=== PATIENT | female | born 1985 | race Caucasian/White ===

== ENCOUNTER 2024-11-15 11:58 | Emergency (ER) | payer OTHER, SELFPAY ==
--- NOTE | ~2024-11-15 | XR_ITS ---
EXAM/ PROCEDURE: XR ankle LT min 3V, XR foot LT min 3V - 11/15/2024 12:30 CDT HISTORY: 39 years old Female with fall, L ankle pain COMPARISON: None available TECHNIQUE: Four view(s) each FINDINGS/ IMPRESSION: Transverse nondisplaced fracture of the base of the fifth metatarsal at the metaphyseal diaphyseal ju nction, compatible with Mustafa fracture. There are no other fractures or dislocations.Joint spaces are within normal limits. Reviewed, dictated and finalized at location A.
[2024-11-15 12:02] VITALS: BP 168/110; PULSE 100; RESP 20; TEMP 36.4; O2SAT 98
--- NOTE | 2024-11-15 13:07 | ED.LOWEXIN ---
HPI - Extremity Injury (Lower) General Chief Complaint: Extremity Injury, Lower Stated Complaint: L foot pain Time Seen by Provider: 11/15/24 13:00 Source: patient Limitations: no limitations History of Present Illness HPI Narrative: This is a 39 year old female that presents to the ER for left foot/ankle pain after an injury today. Unable to put weight on the foot without pain. She tool Tylenol with little relief. No other injuries or other area of pain. Related Data Allergies Allergy/AdvReac Type Severity Reaction Status Date / Time acetaminophen (From NyQuil) Allergy Swelling Verified 11/15/24 12:06 of Lip/Tongue/Throat dextromethorphan (From Allergy Swelling Verified 11/15/24 12:06 NyQuil) of Lip/Tongue/Throat doxylamine (From NyQuil) Allergy Swelling Verified 11/15/24 12:06 of Lip/Tongue/Throat ibuprofen Allergy Swelling Verified 11/15/24 12:06 of Lip/Tongue/Throat pseudoephedrine (From Allergy Swelling Verified 11/15/24 12:06 DayQuil Sinus Pressure/Pain) of Lip/Tongue/Throat Review of Systems Review of Systems: All systems reviewed & are unremarkable except as noted in HPI and below PMFSH Past Medical History Medical History (Updated 11/15/24 @ 13:35 by Sanam Vargas PA-C) No active medical problems Exam Narrative: GENERAL: Well-appearing, well-nourished, and in no acute distress. HEAD: Normocephalic, atraumatic. EYES: EOMI. EXTREMITIES: Normal range of motion. No obvious deformity. Normal DP pulse. Tender to palpation over the left fifth metatarsal SKIN: Warm, dry, no rash. NEURO: No focal deficits. Alert and oriented x3. PSYCH: Normal mood and affect Course Course Emergency Course: Patient updated on her workup and agrees with plan of care Vital Signs Vital signs: Vital Signs Temperature 97.6 F 11/15/24 12:02 Pulse Rate 100 11/15/24 12:02 Respiratory Rate 20 11/15/24 12:02 Blood Pressure 168/110 H 11/15/24 12:02 Pulse Oximetry 98 11/15/24 12:02 Oxygen Delivery Room Air 11/15/24 12:02 Temperature 97.6 F 11/15/24 12:02 Pulse Rate 100 11/15/24 12:02 Respiratory Rate 20 11/15/24 12:02 Blood Pressure 168/110 H 11/15/24 12:02 Pulse Oximetry 98 11/15/24 12:02 Oxygen Delivery Room Air 11/15/24 12:02 Procedures Orthopedic Splinting/Casting Injury #1: Splinting/Casting Date: 11/15/24 Splinting/Casting Time: 13:34 Side: left Lower Extremity Injury Location: foot Splint: customized in ED OCL: short leg Pre-Procedure Neuro Vascular Exam: normal Post-Procedure Neuro Vascular Exam: normal Other Orthopedic Equipment: crutches MDM - Extremity Injury (Lower) MDM Narrative Medical decision making narrative: Patient presents the emergency department after an injury today with left foot pain. Patient is neurovascularly intact. Left foot x-ray shows a transverse nondisplaced fracture at the base of the 5th metatarsal. Patient placed in short-leg posterior, given crutches. Will be given follow-up with Orthopedics. She declines any further pain medication at this time. She was given warnings to return to the ER Differential Diagnosis Differential diagnosis: Likely ankle fracture and other (Foot fracture) Imaging Data Radiologist's impression: EXAM/ PROCEDURE: XR ankle LT min 3V, XR foot LT min 3V - 11/15/2024 12:30 CDT HISTORY: 39 years old Female with fall, L ankle pain COMPARISON: None available TECHNIQUE: Four view(s) each FINDINGS/ IMPRESSION: Transverse nondisplaced fracture of the base of the fifth metatarsal at the metaphyseal diaphyseal junction, compatible with Mustafa fracture. Critical Care Time Critical Care Time Critical Care Time: No Discharge Plan Discharge Clinical Impression: Closed fracture of fifth metatarsal bone Qualifiers: Encounter type: initial encounter Fracture alignment: nondisplaced Laterality: left Qualified Code(s): S92.355A - Nondisplaced fracture of fifth metatarsal bone, left foot, initial encounter for closed fracture Patient Disposition: Home Condition: Stable Instructions: Foot Fracture in Adults (ED) Additional Instructions: Return to the ER if you experience fever, redness and swelling of your extremity, numbness or any other symptoms that are concerning to you Wear splint and use crutches. No weight on the affected leg. Ice and elevate extremity. Pain medication as needed and directed. Follow up with orthopedics for further care. Patient Language: Upper Sorbian Follow-up/Referrals: PHYSICIAN NOT ON STAFF,NONSTAFF [Non-Staff] - Zackary Lomeli MD [Physician] -
[2024-11-15] MEDS: traMADol HCL (*CRX) 50 MG TABLET PO (13:28)
--- OUTSIDE RECORDS SUMMARY | 2024-11-15 13:28 | XMS_ITS | Clinical Summary ---
Author Organization [facility] Address [address] [place] [id number] Care Team Providers Care Curriculum Supervisor Name Role Phone Michelle Villanueva NP Primary Care Provider [phone] Allergies Active Allergy Reactions Criticality Noted Date Comments Dextromethorphan Hives Medium 05/19/2020 Hives Rdurbovze-Mwm-Wv-Acetamin ophen Other (See comments) Low 07/09/2018 Doxylamine Hives Medium 05/19/2020 Hives Ethanol (Ethyl Alcohol) Hives Medium 05/19/2020 Hives Ibuprofen Rash,Swelling,Other (See comments) High 07/09/2018 Other reaction(s): swelling of lips and rash swelling of lips and rash Nsaids (Non-Steroidal Anti-Inflammatory Drug) Anaphylaxis High 08/12/2017 Nyquil Swollen tongue High 07/09/2018 Nvnjdtqzj-Se-Gp-Acetamino phen Anaphylaxis High 08/12/2017 Pseudoephedrine Hives Medium 05/19/2020 Hives Medications ipratropium-albut Keron (DUO-NEB) 0.5-2.5 mg/3 mL nebulizer solutionIndicatio ns:Chronic Obstructive Pulmonary Disease with Bronchospasms Take 3 mL by nebulization 4 (four) times a day as needed for wheezing or shortness of breath 90 mL 04/12/20 23 Active Additional Information Patient not taking.Reported on 07/20/2024 escitalopram (LEXAPRO) 20 mg tabletIndications :Anxiety,Moderate episode of recurrent major depressive disorder (HCC) Take 1 tablet (20 mg total) by mouth daily 30 tablet 3 06/30/19 24 Active Additional Information Patient not taking.Reported on 07/20/2024 ergocalciferol (VITAMIN D) 50,000 unit capsuleIndication s:Vitamin D deficiency Take 1 capsule (50,000 Units total) by mouth once a week 12 capsule 3 12/28/19 24 025 Active albuterol HFA (PROVENTIL HFA,VENTOLIN HFA,PROAIR HFA) 90 mcg/actuation inhalerIndication s:Moderate persistent asthma without complication Inhale 2 puffs every 4 (four) hours as needed for wheezing or shortness of breath 9 g 5 07/21/19 25 Active amLODIPine (NORVASC) 10 mg tabletIndications :Hypertension, essential Take 1 tablet (10 mg total) by mouth daily 90 tablet 1 07/21/19 25 Active fluticasone propion-salmetero L (ADVAIR DISKUS) 250-50 mcg/dose diskus inhalerIndication s:Moderate persistent asthma without complication Inhale 1 puff 2 (two) times a day Rinse mouth with water after use. Do not swallow. 60 each 5 07/21/19 25 Active mometasone (NASONEX) 50 mcg/actuation nasal sprayIndications: Seasonal allergic rhinitis, unspecified trigger Administer 2 sprays into each nostril daily 17 g 5 07/21/19 25 Active Active Problems Problem Noted Date Diagnosed Date Lactose intolerance 12/29/2023 Assessment & Plan (12/29/2023 5:25 AM CDT): New diagnosis, per patient report Encouraged to avoid products containing dairy or can use lactose prior to meals containing dairy Vitamin D deficiency 08/29/2023 Assessment & Plan (07/20/2024 9:49 AM CDT): Uncontrolled, was taking vitamin-D 19665 IU weekly x3 months, now taking cfmh-[id number]-cjpnjbq supplement, states she did not not know she had refills Advised to restart vitamin-D 97931 IU weekly Assessment & Plan (12/28/2023 7:47 AM CDT): Chronicity and stability unknown, not on supplement Started on vitamin D 50,000 international units weekly with a meal Will monitor for stability Assessment & Plan (08/29/2023 9:36 AM CDT): Chronicity and stability unknown Advised to take vitamin D3 2000 IU 2 daily with a meal for 1 month then decrease to 2000 IU 1 daily with a meal Seasonal allergic rhinitis 08/29/2023 Assessment & Plan (07/20/2024 9:47 AM CDT): Uncontrolled Started on Nasonex as directed Assessment & Plan (12/28/2023 7:47 AM CDT): Chronic, stable, controlled with OTC medication Continued on Benadryl as directed as needed Assessment & Plan (08/29/2023 9:35 AM CDT): Chronicity unknown, with worsening symptoms Advised can take ekkc-uxv-sickkoq Zyrtec and use Flonase, both daily, for allergy symptoms, monitor for worsening Encounter for vitamin deficiency screening 06/30 Screening, lipid 06/30/2023 Need for vaccination 10/30/2022 Assessment & Plan (10/30/2022 8:17 AM CDT): Given Prevnar 20 today. Moderate persistent asthma without complication 10/02/2022 Assessment & Plan (07/20/2024 9:47 AM CDT): Controlled Continued on Advair BID, rinsing mouth after use, and albuterol MDI as directed PRN Assessment & Plan (12/28/2023 7:55 AM CDT): Chronic, improved/controlled on medication Continued on Advair BID, rinsing mouth after use, and albuterol MDI as directed PRN Assessment & Plan (08/29/2023 9:34 AM CDT): Chronic, improved/controlled on medication Continued on Advair BID, rinsing mouth after use, and albuterol MDI as directed PRN Assessment & Plan (06/30/2023 12:47 PM [employer]): Chronic, improved on medication Continued on Advair BID, rinsing mouth after use, and albuterol MDI as directed PRN Assessment & Plan (06/22/2023 9:20 AM [employer]): Chronic, uncontrolled, with acute exacerbation Prescribed prednisone burst Started on Breo Recommended follow-up in 2 weeks, sooner if needed, advised ER for new or worsening symptoms Assessment & Plan (01/06/2023 6:11 PM CDT): Uncontrolled, with daily albuterol MDI use, last two IBS/LABA not on formulary or too expensive, prescribed Symbicort & Advair Started on Breo 1 inhalation once daily, rinsing mouth after use Assessment & Plan (10/30/2022 8:16 AM CDT): Chronic, controlled on medication, however Symbicort no longer on formulary- started on Advair [id number]. Assessment & Plan (10/02/2022 4:17 PM CDT): Chronic, stable, controlled with medication-continued on Symbicort twice daily and albuterol as directed as needed, refills sent to pharmacy per patient request. Class 3 severe obesity due t o excess calories with serious comorbidity and body mass index (BMI) of 40.0 to 44.9 in adult 10/02/2022 Assessment & Plan (07/20/2024 9:48 AM CDT): Worsened Encouraged to: Make healthy food choices, limiting intake of concentrated sweets, cholesterol, and saturated fat Monitor daily caloric intake and portion sizes Exercise most days of the week for a goal of at least 150 minutes of exercise per week Assessment & Plan (12/28/2023 7:50 AM CDT): Chronic, worsened Encouraged to: Make healthy food choices, limiting intake of concentrated sweets, cholesterol, and saturated fat Monitor daily caloric intake and portion sizes Exercise most days of the week for a goal of at least 150 minutes of exercise per week Assessment & Plan (08/29/2023 9:34 AM CDT): Chronic, stable Encouraged to: Make healthy food choices, limiting intake of concentrated sweets, cholesterol, and saturated fat Monitor daily caloric intake and portion sizes Exercise most days of the week for a goal of at least 150 minutes of exercise per week Assessment & Plan (06/30/2023 12:48 PM [employer]): Chronic, stable Encouraged to: Make healthy food choices, limiting intake of concentrated sweets, cholesterol, and saturated fat Monitor daily caloric intake and portion sizes Exercise most days of the week for a goal of at least 150 minutes of exercise per week Ordered CMP, HgbA1c, and TSH level Assessment & Plan (06/22/2023 9:22 AM [employer]): Chronic, worsened Encouraged to: Make healthy food choices, limiting intake of concentrated sweets, cholesterol, and saturated fat Monitor daily caloric intake and portion sizes Exercise most days of the week for a goal of at least 150 minutes of exercise per week Assessment & Plan (10/02/2022 4:20 PM CDT): Chronic, worsening, without series comorbidity-encouraged to monitor daily caloric intake and portion sizes and to exercise most days of the week, for goal of at least 150 minutes of exercise per week. Physical exam, annual 09/16/2022 Assessment & Plan (12/29/2023 5:25 AM CDT): Reviewed past and current medical history, surgical history, social history, family history, current medications, and allergies. The chart was updated to identify any changes in these areas. A ROS and PE were performed. Medication and labs were ordered. Discussed well woman exam/cervical cancer screening, and monthly breast self-exams Patient will follow-up in months for further evaluation and management or sooner if needed. Assessment & Plan (10/02/2022 4:17 PM CDT): Reviewed past and current medical history, surgical history, social history, family history, current medications, and allergies. A ROS and PE were performed. Medication was refilled and adjusted. Patient will follow-up in 4 weeks for further evaluation and management or sooner if needed. Hypertension, essential 08/13/2022 Assessment & Plan (07/20/2024 9:47 AM CDT): Controlled Continued on amlodipine Assessment & Plan (12/29/2023 5:28 AM CDT): Chronic, slightly worsened, with borderline diastolic (90), on medication Continued on amlodipine, encouraged low-sodium diet and weight loss Assessment & Plan (08/29/2023 9:34 AM CDT): Chronic, stable, controlled with medication Continued on amlodipine Assessment & Plan (06/30/2023 12:48 PM [employer]): Chronic, uncontrolled Advised to: Get 7-9 hours of sleep a night Make healthy food choices, limiting concentrated sweets, fats, and cholesterol in diet Monitor daily caloric intake and portion sizes Exercise most days of the week for goal of at least 150 minutes of exercise per week Ordered CMP Assessment & Plan (06/22/2023 9:22 AM [employer]): Chronic, controlled with medication Continued on amlodipine Assessment & Plan (01/06/2023 6:11 PM CDT): Controlled on medication Continued on amlodipine, refills sent to pharmacy per request Assessment & Plan (10/30/2022 8:16 AM CDT): Chronic, improved/controlled on amlodipine-continued on amlodipine 10 mg once daily. Assessment & Plan (10/02/2022 4:18 PM CDT): Chronic, uncontrolled/unchanged compared to prior reading, started on amlodipine 5 mg at initial/last visit-increased dose of amlodipine from 5 mg to 10 mg daily. Assessment & Plan (08/15/2022 11:33 AM CDT): Chronic, uncontrolled-started on amlodipine 5 mg daily. Recommended follow-up in 4 weeks for annual and blood pressure check. Anxiety 05/28/2021 Assessment & Plan (07/20/2024 9:46 AM CDT): Controlled, stopped medication Reviewed ADRIANNA-7=3 Will monitor for stability Assessment & Plan (12/29/2023 5:27 AM CDT): Chronic, slightly worsened according to ADRIANNA-7 or on medication Reviewed ADRIANNA-7= 12, previously 10 Continued on Lexapro 20 mg daily and hydroxyzine as directed as needed Assessment & Plan (08/29/2023 9:32 AM CDT): Chronic, improved on medication Reviewed ADRIANNA-7=10 Continued on Lexapro 20 mg daily and hydroxyzine as directed as needed Assessment & Plan (06/30/2023 12:45 PM [employer]): Chronic, improved on medication and with better control of asthma symptoms Continued on Lexapro 20 mg daily, prescription sent to pharmacy per request Assessment & Plan (06/22/2023 9:21 AM [employer]): Chronic, uncontrolled Continued on Lexapro, advised can increased from 10 mg to 20 mg daily Assessment & Plan (01/06/2023 6:31 PM CDT): Uncontrolled, not on medication, historically took Lexapro and saw psychiatry and was getting counseling Started on Lexapro 10 mg daily and hydroxyzine 10 mg 1-2 tabs BID PRN Assessment & Plan (10/02/2022 4:18 PM CDT): Chronic, uncontrolled, not on medication-declined refills on Lexapro. Encouraged follow-up with psychiatrist and therapist as recommended. Depression 05/28/2021 Assessment & Plan (07/20/2024 9:46 AM CDT): Controlled, stopped medication Reviewed PHQ-9=0 Will monitor for stability Advise if suicidal ideation or thoughts of harming self or others, to go to ER and/or call [phone] for assistance, agreed to contract for safety Assessment & Plan (12/29/2023 5:26 AM CDT): Chronic, improved on medication Reviewed PHQ-9= 9, previously 11 Continued on Lexapro 20 mg daily Advised if suicidal ideation or thoughts of harming self or others, to go to ER and/or call [phone] for assistance, agreed to contract for safety Assessment & Plan (08/29/2023 9:33 AM CDT): Chronic, improved on medication Reviewed PHQ-9=11 Continued on Lexapro 20 mg daily Advised if suicidal ideation or thoughts of harming self or others, to go to ER and/or call [phone] for assistance, agreed to contract for safety Assessment & Plan (06/30/2023 12:46 PM [employer]): Chronic, improved on medication and with better control of asthma symptoms Continued on Lexapro 20 mg daily, prescription sent to pharmacy per request Advised if suicidal ideation or thoughts of harming self or others, to go to ER and/or call [phone] for assistance, agreed to contract for safety Assessment & Plan (06/22/2023 9:21 AM [employer]): Chronic, uncontrolled Continued on Lexapro, advised can increased from 10 mg to 20 mg daily Instructed if suicidal ideation or thoughts of harming self or others, to go to ER and/or call [phone] for assistance, agreed to contract for safety Assessment & Plan (10/02/2022 4:18 PM CDT): Chronic, uncontrolled, not on medication-declined refills on Lexapro. Encouraged follow-up with psychiatrist and therapist as recommended. Resolved Problems Problem Noted Date Diagnosed Date Resolved Date Severe obesity 07/20/2024 07/20/2024 Body mass index 40.0-44.9, adult (CMS/[facility]) 07/20/2024 07/20/2024 Elevated hemoglobin 06/30/2023 12/28/19 24 Assessment & Plan (06/30/2023 12:49 PM [employer]): New diagnosis Ordered CBC to monitor for stability COVID-19 04/12/2023 06/29/2023 Leukocytes in urine 08/15/2022 09/17/19 23 Assessment & Plan (08/15/2022 11:34 AM CDT): Recent diagnosis, on antibiotic-stopped Cipro due to new diagnosis of strep pharyngitis, started on Augmentin. Instructed to increase fluid intake. Will review culture results when available. Encounter to establish care 08/13/2022 09/16/2022 Assessment & Plan (08/15/2022 11:30 AM CDT): Reviewed past and current medical history, surgical history, social history, family history, current medications, and allergies. A ROS and PE were performed. Medications were prescribed. Patient will follow-up in 4 weeks for annual exam, sooner if needed. Strep pharyngitis 08/13/2022 09/16/2022 Assessment & Plan (08/15/2022 11:33 AM CDT): Acute-rapid strep positive. Stopped Cipro and started on Augmentin 875 mg twice daily times 10 days. Advised can gargle with warm salt water (1/4-1/2 tsp to 8 oz of warm water, three to four times a day as needed) and can take Tylenol as directed as needed. Informed may also use one-two tsp of honey to soothe throat and/or drink hot tea with honey and lemon and/or can try Cepacol or Chloraseptic lozenges or spray as directed as need for throat pain. Recommended soft foods and hot or cold foods or beverages depending on preference. Instructed to increase clear liquids, rest, and vitamin C in diet. Sore throat 08/13/2022 09/16/2022 Assessment & Plan (08/15/2022 11:33 AM CDT): Acute-rapid strep positive, see plan of care for strep pharyngitis. Acute cystitis with hematuria 08/11/2022 09/16/2022 Assessment & Plan (08/11/2022 7:31 PM CDT): Urine dipstick positive for moderate blood, small leukocytes, protein and trace ketones Pt taking Macrobid with no improvement Sent urine for culture and start Ciprofloxacin 500 mg bid x 5 days Increase water intake, avoid caffeine and alcohol Seek care (go to Urgent Care or ER) immediately if: You are urinating very little or not at all. You are vomiting. You have a high fever with shaking chills. You have side or back pain that gets worse. Contact your primary care doctor or [employer] if: You have a fever. You have white or yellow discharge from your vagina. You do not feel better after 2 days of taking antibiotics. Elevated blood pressure reading 08/11/2022 09/16/2022 Assessment & Plan (08/11/2022 7:33 PM CDT): Initial BP elevated at 172/74, and 158/100 on recheck Hx of elevated BP at doctor's appointments Pt had hx of HTN during , has not been on antihypertensive medication Pt does not currently have a PCP, will plan to get her into see a [facility] PCP in the next 3 days Provided pt with information on hypertension and warning signs/when to go to ER discussed care following delivery 2021 09/04/2021 Overview (2021): # progress: Doing well from standpoint. # Incision well-healed # PreE with SF: BP well-controlled on N120 qd and enalapril 2.5mg BID # Mood: good # MOC: s/p BTL # Pap: delivery delivered 04/25/2021 09/04/2021 Overview (04/29/2021): # ID: Afebrile. No signs/symptoms of infection. #COVID-19: Recovered # Heme: EBL 1200 mL. No symptoms acute blood loss anemia. Pre-op Hgb 13.7 > hgb 12.0 POD#1. # CV/Pulm: #Pre-eclampsia with severe features: S/p 24h PP magnesium sulfate. Starting UPC 0.137. CBC/CMP notable for AST/ALT decreased from 112/195 to 42/100. Nifedipine XL increased to 120mg daily yesterday, still majority MR BPs. Adding 2.5mg enalapril BID. Will CTM BP. Enrolling in home BP monitoring. #LA asthma: Well controlled on prn albuterol. # GI/: Tolerating PO. Voiding spontaneously. # Pain: Controlled with above regimen. # Post DVT prophylaxis: The patient has the following MAJOR risk factors prolonged labor OR antepartum admission >72h immediately prior to delivery and the following MINOR risk factors BMI 30-39, delivery, preeclampsia and parity >/=3. enoxaparin 40 mg daily ordered for VTE prophylaxis. # MOC: s/p BS # MOF: # COVID Vaccination Status: Not previously received: I do want the vaccine, but I don't want it right now. Will provide with information regarding vaccination in the community in discharge instructions. # Disposition: Follow up task sent to [facility] scheduling pool. Consider last discharge today pending BP control. Immunizations Immunization Administration Dates Next Due HPV, Quadrivalent 11/22/2008,02/16/2008,12/16/19 08 Influenza, Quadrivalent, Spl it, Preservative Free, Intramuscular 02/26/2022,12/27/2019,02/14/2019 Influenza, Split 04/02/2011,01/06/2009 Influenza, Unspecified 02/09/2024(Deferr ed: Patient Refused),06/30/2023(Deferred: Patient Refused),06/16/2023(Deferred: Patient decision) Influenza, Whole 03/10/2007 MMR 04/29/2021(Deferred: No longer needed - rubella immune) Pneumococcal Conjugate Pcv20 10/30/2022 Tdap 04/17/2021,11/11/2007 Surgical History Surgery Date Site/Laterality Comments SECTION CHOLECYSTECTOMY TUBAL LIGATION 04/25/2021 Medical History Medical History Date Comments care following helena witt delivery 2021 # progress: Doing well from standpoint. # Incision well-healed # PreE with SF: BP well-controlled on N120 qd and enalapril 2.5mg BID # Mood: good # MOC: s/p BTL # Pap: delivery delivered 04/25/2021 # ID : Afebrile. No signs/symptoms of infection. #COVID-19: Recovered # Heme: EBL 1200 mL. No symptoms acute blood loss anemia. Pre-op Hgb 13.7 > hgb 12.0 POD#1. # CV/Pulm: #Pre-eclampsia with severe features: S/p 24h PP magnesium sulfate. Starting UPC 0.137. CBC/CMP notable for AST/ALT decreased from 112/195 to 42/100. Nifedipine XL increased to 120mg daily yesterday, still majority MR BPs. Adding Hypertension Elevated blood pressure reading 08/11/2022 Anxiety 04/25/2021 Asthma 1986 Depression 04/25/21 Family History Medical History Relation Name Comments Allergy (severe) Mother elias Anemia Mother elias Depression Mother elias Diabetes Mother elias Hypertension Mother elias Allergy (severe) Son grover Asthma Son grover Relation Name Status Comments Mother elias Son grover Social History Tobacco Use Types Packs/Day Years Used Date Smoking Tobacco: Former Cigarettes 0.5 12 Smokeless Tobacco: Never Tobacco Cessation:Counseling Given: Not Answered Comments:I quit on my own havent smoked in 4 years Alcohol Use Standard Drinks/Week Comments Never 0 (1 standard drink = 0.6 oz pur e alcohol) AUDIT-C Answer Date Recorded Q1: How often do you have a drink containing alc ohol? Never 08/13/2022 Average Number of Drinks Not on file 023 Frequency of Binge Drinking Not on file 0409/2022 PHQ-2 Answer Date Recorded PHQ-2 Total Score (If total score is 3 or more points, staff should administer the PHQ-9) 0 07/20/2024 [place] Depression Scale Answer Date Recorded [place] Depression Scale Total 8 07/03/2021 The thought of harming myself has occurred to me . Never 07/03/2021 PHQ-9 Answer Date Recorded PHQ-9 Total Score 9 12/28/2023 Personal Safety Answer Date Recorded Have you ever been in or are you currently in a harmful physical or emotional relationship or is someone making you feel afraid or unsafe? Denies 05/22/2023 Comments No Sex and Gender Information Value Date Recorded Sex Assigned at Not on file Legal Sex Female 5:36 PM [employer] Gender Identity Female 05/19/2021 7:46 PM [employer] Sexual Orientation Straight 05/19/2021 7: 46 PM [employer] Obstetrics History Para Term AB IAB SAB Ectopic Multiple Livin g Live Births 3 3 1 2 0 2 2 Date Outcome GA Total Labor Labor/2nd/3rd Weight Sex Type Anes PTL Buffy A1 A5 Name Clin M CS-LT ranv Livin g Complications:Breech Term M CS-LT ranv Comments:repeat c/s 2020 32w 3d 0h 02m 0h 02m 1.62 kg (3 lb 9.1 oz) M CS-LT ranv Combin ed Spinal /Epidu ral N Livin g 7 8 ANANYA DURAN, Nemesio Kraft MD Complications:Pre eclampsia Delivery Location:[facility] Main C ampus ([facility] L AND D PROCEDURE) Last Filed Vital Signs Vital Sign Reading Time Taken Comments Blood Pressure 132/88 07/20/2024 8:08 AM CDT Pulse 78 07/20/2024 8:08 AM CDT Temperature 36.6 C (97.9 F) 07/20/2024 8:08 AM CDT Respiratory Rate 14 07/20/2024 8:08 AM CDT Oxygen Saturation 97% 07/20/2024 8:08 AM CDT Inhaled Oxygen Concentration - - Weight 116.5 kg (256 lb 12.8 oz) 07/20/2024 8:08 AM CDT Height 162.6 cm (5' 4.02) 07/20/2024 8:08 AM CD T Body Mass Index 44.06 07/20/2024 8:08 AM CDT Plan of Treatment Health Maintenance Due Date Last Done Comments Cervical Cancer Screening 1986 Hepatitis B Screening 2004 Regular Well Visit/Exam 18-64 12/27/2024 12/28/2023, 10/02/2022 Influenza Vaccine (#1) 2025 , 12/27/2019, 02/14/2019, Additional history exists Depression Screening 07/20/2025 07/20/2024, 12/28/2023, 12/28/2023, Additional history exists DTaP/Tdap/Td Vaccine (3 - Td or Tdap) 04/17/2031 04/17/2021, 11/11/2007 HPV Vaccines Completed 11/22/2008, 12/2007, 12/16/2007 Hepatitis C Screening Completed 04/20/2021 Pneumococcal vaccine <65 Completed 10/30/2022 Varicella Vaccines Discontinued Procedures Procedure Name Priority Date/Time Associated Diagnosis Comments HEPATITIS PANEL, ACUTE Timed 04/20/2021 2:01 PM [employer] from Last 3 Months or Most Recently Relevant to Health Maintenance Results * Hepatitis panel, acute (04/20/2021 2:01 PM [employer]) Hep A IgM Nonreactive [facility] Comment: Interpretive Data: If Hep A IgM Ab is reported as Equivocal, a new sample should be drawn in two weeks for testing. Current interpretive data was last revised on 19. Hep B core IgM Nonreactive Nonreactive [facility] Comment: Interpretive Data If HepB Core IgM Ab is reported as Equivocal, a new sample should be drawn in two weeks for testing. Current interpretive data was last revised on 19. Hep C Ab Nonreactive Nonreactive [facility] Comment:Antibodies to HCV no t detected. Does NOT exclude the possibility of recent exposure to HCV. HepBsAg Nonreactive Nonreactive [facility] Blood 04/20/2021 2:01 PM [employer] 04/20/2021 2:17 PM [employer] us Christin Kirk MD LAB MICROBIOL OGY - GENERAL ORDERABLES Edited Result - Final [facility] Department [place] [address] from Last 3 Months or Most Recently Relevant to Health Maintenance Insurance [facility] HMO/PPO Address: [facility] [address] [place] [address] [employer] [facility] HMO/PPO Address: [address] [address] [place] [address] Advance Directives For more information, please contact: [phone] * Full Code (Latest Code Status on File) Date Activated Date Inactivated Comments 04/25/2021 6:00 PM 04/29/2021 11:10 PM * Full Code Date Activated Date Inactivated Comments 04/11/2021 3:05 PM 04/25/2021 6:00 PM Care Teams Curriculum Supervisor Relationship Specialty Start Date End Date Michelle Villanueva NP [address] [place] [id number] PCP - General Family Practice 08/13/22
--- OUTSIDE RECORDS SUMMARY | 2024-11-15 13:28 | XMS_ITS | Referral Summary ---
Author Organization [facility] Address [address] [place] [id number] Care Team Providers Care Rehab Aide Name Role Phone Michelle Villanueva NP Primary Care Provider [phone] Allergies Active Allergy Reactions Criticality Noted Date Comments Dextromethorphan Hives Medium 05/19/2020 Hives Xvleuyjtp-Qpo-Ux-Acetamin ophen Other (See comments) Low 07/09/2018 Doxylamine Hives Medium 05/19/2020 Hives Ethanol (Ethyl Alcohol) Hives Medium 05/19/2020 Hives Ibuprofen Rash,Swelling,Other (See comments) High 07/09/2018 Other reaction(s): swelling of lips and rash swelling of lips and rash Nsaids (Non-Steroidal Anti-Inflammatory Drug) Anaphylaxis High 08/12/2017 Nyquil Swollen tongue High 07/09/2018 Hyeumuihy-Ac-Zy-Acetamino phen Anaphylaxis High 08/12/2017 Pseudoephedrine Hives Medium [...] 9:49 AM CDT): Uncontrolled, was taking vitamin-D 07544 IU weekly x3 months, now taking carz-cju-mkyeyad supplement, states she did not not know she had refills Advised to restart vitamin-D 56968 IU weekly Assessment & Plan (12/28/2023 7:47 [...] unknown, with worsening symptoms Advised can take pamu-mdy-biwevnx Zyrtec and use Flonase, both daily, for [...] PRN Assessment & Plan (06/30/2023 12:47 PM BLASTING COAL MINER): Chronic, improved on medication Continued on Advair BID, rinsing mouth after use, and albuterol MDI as directed PRN Assessment & Plan (06/22/2023 9:20 AM BLASTING COAL MINER): Chronic, uncontrolled, with acute exacerbation Prescribed prednisone [...] no longer on formulary- started on Advair [id number]. Assessment & Plan (10/02/2022 4:17 PM CDT): [...] week Assessment & Plan (06/30/2023 12:48 PM BLASTING COAL MINER): Chronic, stable Encouraged to: Make healthy food choices, limiting intake of concentrated sweets, cholesterol, and saturated fat Monitor daily caloric intake and portion sizes Exercise most days of the week for a goal of at least 150 minutes of exercise per week Ordered CMP, HgbA1c, and TSH level Assessment & Plan (06/22/2023 9:22 AM BLASTING COAL MINER): Chronic, worsened Encouraged to: Make healthy food [...] amlodipine Assessment & Plan (06/30/2023 12:48 PM BLASTING COAL MINER): Chronic, uncontrolled Advised to: Get 7-9 hours of sleep a night Make healthy food choices, limiting concentrated sweets, fats, and cholesterol in diet Monitor daily caloric intake and portion sizes Exercise most days of the week for goal of at least 150 minutes of exercise per week Ordered CMP Assessment & Plan (06/22/2023 9:22 AM BLASTING COAL MINER): Chronic, controlled with medication Continued on amlodipine [...] AM CDT): Chronic, improved on medication Reviewed ADRIANAN-7=10 Continued on Lexapro 20 mg daily and hydroxyzine as directed as needed Assessment & Plan (06/30/2023 12:45 PM BLASTING COAL MINER): Chronic, improved on medication and with better control of asthma symptoms Continued on Lexapro 20 mg daily, prescription sent to pharmacy per request Assessment & Plan (06/22/2023 9:21 AM BLASTING COAL MINER): Chronic, uncontrolled Continued on Lexapro, advised can [...] safety Assessment & Plan (06/30/2023 12:46 PM BLASTING COAL MINER): Chronic, improved on medication and with better control of asthma symptoms Continued on Lexapro 20 mg daily, prescription sent to pharmacy per request Advised if suicidal ideation or thoughts of harming self or others, to go to ER and/or call [phone] for assistance, agreed to contract for safety Assessment & Plan (06/22/2023 9:21 AM BLASTING COAL MINER): Chronic, uncontrolled Continued on Lexapro, advised can [...] 07/20/2024 07/20/2024 Body mass index 40.0-44.9, adult ([facility]) 07/20/2024 07/20/2024 Elevated hemoglobin 06/30/2023 12/28/19 24 Assessment & Plan (06/30/2023 12:49 PM BLASTING COAL MINER): New diagnosis Ordered CBC to monitor for [...] worse. Contact your primary care doctor or SHIPPING AND RECEIVING SUPERVISOR if: You have a fever. You have [...] plan to get her into see a [facility] PCP in the next 3 days Provided [...] CTM BP. Enrolling in home BP monitoring. #RI asthma: Well controlled on prn albuterol. # [...] # Disposition: Follow up task sent to [facility] scheduling pool. Consider last discharge today pending BP control. Immunizations Immunization Administration Dates Next Due HPV, Quadrivalent 11/22/2008,02/16/2008,12/16/19 08 Influenza, Quadrivalent, Spl it, Preservative Free, Intramuscular 02/26/2022,12/27/2019,02/14/2019 Influenza, Split 04/02/2011,01/06/2009 Influenza, Unspecified 02/09/2024(Deferr ed: Patient Refused),06/30/2023(Deferred: Patient Refused),06/16/2023(Deferred: Patient decision) Influenza, Whole 03/10/2007 MMR 04/29/2021(Deferred: No longer needed - rubella immune) Pneumococcal Conjugate Pcv20 10/30/2022 Tdap 04/17/2021,11/11/2007 Social History Tobacco Use Types Packs/Day Years [...] Frequency of Binge Drinking Not on file 09/2022 PHQ-2 Answer Date Recorded PHQ-2 Total Score (If total score is 3 or more points, staff should administer the PHQ-9) 0 07/20/2024 [place] Depression Scale Answer Date Recorded [place] Depression Scale Total 8 07/03/2021 The thought [...] on file Legal Sex Female 5:36 PM BLASTING COAL MINER Gender Identity Female 05/19/2021 7:46 PM BLASTING COAL MINER Sexual Orientation Straight 05/19/2021 7: 46 PM BLASTING COAL MINER Last Filed Vital Signs Vital Sign Reading [...] 07/20/2024 8:08 AM CDT Plan of Treatment Not on file Procedures Procedure Name Priority Date/Time Associated Diagnosis Comments HEPATITIS PANEL, ACUTE Timed 04/20/2021 2:01 PM BLASTING COAL MINER from Last 3 Months or Most Recently Relevant to Health Maintenance Results * Hepatitis panel, acute (04/20/2021 2:01 PM BLASTING COAL MINER) Hep A IgM Nonreactive Nonreactive [facility] Comment: Interpretive Data: If Hep A IgM Ab is reported as Equivocal, a new sample should be drawn in two weeks for testing. Current interpretive data was last revised on 19. Hep B core IgM Nonreactive Nonreactive [facility] Comment: Interpretive Data If HepB Core IgM Ab is reported as Equivocal, a new sample should be drawn in two weeks for testing. Current interpretive data was last revised on 19. Hep C Ab Nonreactive Nonreactive [facility] Comment:Antibodies to HCV no t detected. Does NOT exclude the possibility of recent exposure to HCV. HepBsAg Nonreactive Nonreactive [facility] Blood 04/20/2021 2:01 PM BLASTING COAL MINER 04/20/2021 2:17 PM BLASTING COAL MINER us Christin Kirk MD LAB MICROBIOL OGY - GENERAL ORDERABLES Edited Result - Final [facility] One [facility] Department [place] [address] from Last 3 Months or Most Recently Relevant to Health Maintenance Insurance [facility] HMO/PPO Address: [address] [address] [place] [address] [facility] HMO/PPO Address: [address] [address] Advance Directives For more information, please contact: [phone] * Full Code (Latest Code Status on File) Date Activated Date Inactivated Comments 04/25/2021 6:00 PM 04/29/2021 11:10 PM * Full Code Date Activated Date Inactivated Comments 04/11/2021 3:05 PM 04/25/2021 6:00 PM Care Teams Rehab Aide Relationship Specialty Start Date End Date Michelle Villanueva NP [address] [place] [id number] PCP - General Family Practice 08/13/22
[2024-11-15 14:20] VITALS: BP 156/104; PULSE 84; RESP 18; TEMP 36.6; O2SAT 98
== END 2024-11-15 14:21 | disposition home or self-care (01) ==
PROVIDERS: Emergency Provider Physician Assistant; PCP Family Medicine
DX: S92.355A Nondisplaced fracture of fifth metatarsal bone, left foot, initial encounter for closed fracture (principal); W18.40XA Slipping, tripping and stumbling without falling, unspecified, initial encounter
CPT/HCPCS: 29515; 73610; 73630; 99284; A9270